=== PATIENT | male | born 1990 | race Caucasian/White ===

== ENCOUNTER 2020-04-24 12:22 | Outpatient (CLI) | payer OTHER | END 2020-04-24 12:23 | disposition home or self-care (01) | LOC: RT 12:22 | PROVIDERS: ATTEND Family Medicine | DX: R00.2 Palpitations (principal) | CPT/HCPCS: 93005 ==

== ENCOUNTER 2020-05-24 09:04 | Outpatient (CLI) | payer OTHER | END 2020-05-24 09:05 | disposition home or self-care (01) | LOC: DI 09:04 | PROVIDERS: ATTEND Family Medicine | DX: I49.3 Ventricular premature depolarization (principal) | CPT/HCPCS: 93306 ==